=== PATIENT | female | born 1995 | race African-American/Black ===

== ENCOUNTER 2021-01-28 08:09 | Emergency (ER) | payer SELFPAY ==
[~2021-01-28] VITALS: Ht 154.9 cm; Wt 68.2 kg
[2021-01-28 08:16] VITALS: BP 166/104; Ht 154.9 cm; Wt 68.2 kg
[2021-01-28] MEDS ORDERED: FLUTICASONE PRO16 GM NASAL (08:36)
[2021-01-28] MEDS ORDERED: STERAPRED DS 1010 MG PO (08:36)
== END 2021-01-28 08:50 | disposition home or self-care (01) ==
LOC: D.ER 08:09
DX: J30.9 Allergic rhinitis, unspecified (principal); Z72.0 Tobacco use